=== PATIENT | male | born 1980 | race American Indian/Alaskan Native ===

== ENCOUNTER 2017-10-09 06:08 | Emergency (ER) | payer BC ==
[2017-10-09 06:22] VITALS: RESP 18; TEMP 98.6
--- NOTE | 2017-10-09 07:40 | ED PDOC ---
Arrival/HPI - General Chief Complaint: Male Genitourinary Time Seen by Provider: 10/09/17 07:36 - History of Present Illness Narrative History of Present Illness (Text): 37 y/o M c no PMHx p/w concern for STD. Sexual partner tested positive for Chlamydia last month. Denies dysuria, discharge, testicular pain or swelling, fever, abdominal pain, vomiting. Past Medical History - Psychiatric Hx Substance Use: No Family/Social History Family/Social History: No Known Family HX Smoking Status: Never Smoked Hx Alcohol Use: Yes Frequency of alcohol use: Socially Hx Substance Use: No Allergies/Home Meds Allergies/Adverse Reactions: Allergies No Known Allergies Allergy (Verified 10/09/17 06:19) Home Medications: Home Meds Medication Instructions Recorded Confirmed No Known Home Med 10/09/17 10/09/17 Review of Systems - Physician Review All systems were reviewed & negative as marked: Yes - Review of Systems Constitutional: absent: Fevers Respiratory: absent: SOB Physical Exam - Physical Exam Narrative Physical Exam (Text): Gen: NAD Head: NC Abd: Soft, nontender : No testicular swelling or tenderness. No erythema. No penile discharge or swelling. Neuro: Alert, no focal deficit. Vital Signs Temp Pulse Resp BP Pulse Ox 10/09/17 06:19 98.6 F 80 18 159/94 H 99 Medical Decision Making ED Course and Treatment: Send GC/Chlamydia. Treat empirically now. Advised to f/u with clinic for full STD testing. Disposition/Present on Arrival - Present on Arrival Any Indicators Present on Arrival: No History of DVT/PE: No History of Uncontrolled Diabetes: No Urinary Catheter: No History of Decub. Ulcer: No History Surgical Site Infection Following: None - Disposition Have Diagnosis and Disposition been Completed?: Yes Diagnosis: Exposure to sexually transmitted disease (STD) Disposition: HOME/ ROUTINE Disposition Time: 07:37 Patient Plan: Discharge Condition: STABLE Discharge Instructions (ExitCare): Sexually Transmitted Diseases (ED) Referrals: [facility] [place] - Follow up with primary
[2017-10-09] MEDS ORDERED: cefTRIAXone (Rocephin) 250 mg Inj IM STA (07:46)
[2017-10-09 08:05] VITALS: BP 149/79; PULSE 73; O2SAT 100
--- NOTE | 2017-10-09 15:54 | CARD ---
APPROVED REPORT EKG Measurement Heart [id number] CO [id number] <Conclusion> Normal sinus rhythm Nonspecific T wave abnormality Abnormal ECG
== END 2017-10-09 08:02 | disposition home or self-care (01) ==
LOC: ED 06:08
DX: Z20.2 Contact with and (suspected) exposure to infections with a predominantly sexual mode of transmission (principal)
CPT/HCPCS: 87491; 87591; 93005; 96372; 99284; J0696